=== PATIENT | male | born 1970 | race Caucasian/White ===

== ENCOUNTER → 2019-04-08 | Outpatient (CLI) | payer OTHER | END | disposition home or self-care (01) | LOC: SLP 20:35 | DX: G47.33 Obstructive sleep apnea (adult) (pediatric) (principal) | CPT/HCPCS: 95810 ==

== ENCOUNTER → 2024-11-14 | Outpatient (CLI) | payer OTHER ==
[~2024-11-14] MED LIST: REGADENOSON 0.4 MG/5 ML PF SYG IVP ONE
--- NOTE | 2024-11-14 13:53 | HMCSR ---
APPROVED REPORT Height: 5 ft 10in Weight: 200 lbs TEST INDICATIONS OTHER CHEST PAIN The imaging protocol used to acquire images was Rest Tc-99m/stress Tc-99m 1 day Consent: The procedure was explained and understood by the patient. Informerd consent was witnessed Yelena Quintero RN First, low dose rest was performed then high dose stress. RESTING DATA: The resting ekg shows: NSR Rest SPECT myocardial perfusion imaging was performed in supine position minutes following the intra venous injection of 10 mCi of Tc-99 Sestamibi. Time of rest injection: 09:11: Date: 11/14/2024 PHARMACOLOGIC STRESS: Pharmacologic stress test was performed by injecting regadenoson 0.4 mg IV push followed by the intra venous injection of 27 mCi of Tc-99 Sestamibi. Time of stress injection: 11:00: Date: 11/14/2024 Heart Rate at time of stress injection: 62 bpm. Gated Stress SPECT was performed 60 minutes after stress injection. The images were gated to evaluate regional wall motion and calculate left ventricular ejection fracti on. STRESS DETAILS Reason for Termination: Infusion complete Stress Symptoms: Dyspnea Max HR Achieved: 112 bpm % of APMHR Achieved: 80 Max Blood Pressure: 155/86 mmHg Stress ECG: NSR Conclusion No ischemia No infarct LV ejection fraction 68% Normal LV size at rest and stress No increased lung uptake Normal LV wall motion
== END | disposition home or self-care (01) ==
LOC: RAH 08:44
PROVIDERS: ATTEND Internal Medicine Cardiovascular Disease
DX: R07.89 Other chest pain (principal); R06.00 Dyspnea, unspecified; H25.13 Age-related nuclear cataract, bilateral; D64.9 Anemia, unspecified; I25.10 Atherosclerotic heart disease of native coronary artery without angina pectoris; M50.90 Cervical disc disorder, unspecified, unspecified cervical region; H04.123 Dry eye syndrome of bilateral lacrimal glands; E78.5 Hyperlipidemia, unspecified; G47.00 Insomnia, unspecified; M51.16 Intervertebral disc disorders with radiculopathy, lumbar region; M54.50 Low back pain, unspecified; N52.9 Male erectile dysfunction, unspecified; F52.32 Male orgasmic disorder; K63.5 Polyp of colon; R73.03 Prediabetes; H52.4 Presbyopia; H90.3 Sensorineural hearing loss, bilateral; M48.02 Spinal stenosis, cervical region
CPT/HCPCS: 78452; 93017; J2785; A9500 ×2